=== PATIENT | male | born 1940 | race Caucasian/White ===

== ENCOUNTER 2019-12-25 00:26 | Emergency (ER) | payer MEDICARE, OTHER ==
--- NOTE | 2019-12-25 00:47 | ERPHSYRPT ---
- History of Present Illness Time Seen by Provider: 12/25/19 00:42 Source: patient Exam Limitations: no limitations Physician History: 79 years old male with history of Alzheimer dementia, coronary artery disease status post CABG, issues with balance needing walker/cane for ambulation, got up to go to bathroom and fell forward hitting his head against the stair. No loss of consciousness. He was able to get up. He has significant bruise and hematoma forehead /laceration left hand fingers. He denies injury any rales. No abdominal pain nausea or vomiting. No chest pain palpitations or shortness of breath. Taking aspirin but no other blood thinners. History is limited secondary to his dementia, obtained from and daughter. Occurred: just prior to arrival Reason for Fall: fell from standing pos Injuries/Pain Location: head, face, upper extremity Loss of Consciousness: no loss of consciousness Quality: aching, sharpness Severity of Pain-Max: mild Severity of Pain-Current: mild Modifying Factors: Improves With: nothing Associated Symptoms (Fall): extremity injury, No abdominal pain, No back pain, No chest pain, No dizziness, No headache, No lightheadedness, No muscle spasms, No nausea, No neck pain, No ringing in ears, No seizures, No shortness of breath , No slurred speech, No vomiting Allergies/Adverse Reactions: Penicillins Allergy (Verified 12/25/19 00:57) Home Medications: Amlodipine Besylate [Norvasc] 2.5 mg PO DAILY 12/25/19 [History] Aspirin EC 81 mg [Ecotrin 81 mg] 162 mg PO DAILY 12/25/19 [History] Divalproex Sodium [Depakote] 250 mg PO TID 12/25/19 [History] Memantine HCl 10 mg PO BID 12/25/19 [History] Metoprolol Tartrate 50 mg [Lopressor 50 MG] 50 mg PO BID 12/25/19 [History ] Multivitamin [Multivitamins] 1 each PO DAILY 12/25/19 [History] Pravastatin Sodium 80 mg PO HS 12/25/19 [History] Rivastigmine Tartrate [Rivastigmine] 3 mg PO BID 12/25/19 [History] Sertraline HCl 100 mg PO DAILY 12/25/19 [History] - Review of Systems All Other Systems: Unable due to dementia - Nursing Vital Signs Nursing Vital Signs: Initial Vital Signs Pulse Rate 58 L 12/25/19 00:30 Respiratory Rate 18 12/25/19 00:30 Blood Pressure 137/51 12/25/19 00:30 O2 Sat by Pulse Oximetry 94 L 12/25/19 00:30 Pain Scale Pain Intensity 1 - [place] Coma Score Best Eye Response ([place]): (4) open spontaneously Best Verbal Response ([place]): (5) oriented Best Motor Response ([place]): (6) obeys commands Cecelia Total: 15 - Physical Exam General Appearance: no apparent distress Head Injury: contusions, swelling, tenderness, No Pham's Sign Eye Exam: PERRL/EOMI, eyes nml inspection, No scleral icterus ENT Exam: airway nml Neck Exam: supple Respiratory/Chest Exam: normal breath sounds, No chest tenderness, No respiratory distress Cardiovascular Exam: normal heart sounds, regular rate/rhythm Gastrointestinal Exam: soft, normal bowel sounds, No tenderness Back Exam: normal inspection, normal range of motion Extremity Exam: normal inspection, normal range of motion, capillary refill <3 sec, pelvis stable Neurologic Exam: alert, cooperative, security systems manager II-XII nml as tested, nml cerebellar function Skin Exam: normal color, warm, dry SpO2 Interpretation: normal O2 Delivery: Room Air - Course Nursing assessment & vital signs reviewed: Yes Ordered Tests: Active Orders 24 hr Category Date Time Status CERVICAL SPINE WO CONTRAST [CT] Stat Exams 12/25/19 01:02 Taken CHEST 1 VIEW (PORTABLE) Stat Exams 12/25/19 01:28 Taken FACIAL BONES WO CONTRAST [CT] Stat Exams 12/25/19 00:40 Taken HAND (MINIMUM 3 VIEWS) Stat Exams 12/25/19 01:28 Taken HEAD WITHOUT CONTRAST [CT] Stat Exams 12/25/19 00:59 Taken - Progress Progress: improved, re-examined Progress Note: pharyngitis is noted that [id number] years old is evaluated for a fall and forehead hematoma. Rule out skull fracture, internal oblique, midline shift or mass effect. Does have nondisplaced nasal bone fracture. Negative CT cervical spine. Chest x-ray did not show any pneumothorax. X-rays left hand negative for fracture. Small superficial laceration left third finger repaired with Steri-Strips placed to. Recommended Tylenol take as needed. Patient is offered pain medication but he doesn't want it. This point I do not think he needs any further workup, no signs of injury any rales. Stable for discharge with outpatient followup. Recommended using cane R. Walker all the time to prevent falling. 12/25/19 01:49 Counseled pt/family regarding: diagnosis, need for follow-up, rad results - Departure Departure Disposition: Home Clinical Impression: Traumatic hematoma of forehead Qualifiers: Encounter type: initial encounter Qualified Code(s): S00.83XA - Contusion of other part of head, initial encounter Nasal bone fracture Qualifiers: Encounter type: initial encounter Fracture type: closed Qualified Code(s): S02.2XXA - Fracture of nasal bones, initial encounter for closed fracture Finger laceration Qualifiers: Encounter type: initial encounter Finger: middle finger Damage to nail status: without damage Foreign body presence: without foreign body Laterality: left Qualified Code(s): S61.213A - Laceration without foreign body of left middle finger without damage to nail, initial encounter Fall Qualifiers: Encounter type: initial encounter Qualified Code(s): W19.XXXA - Unspecified fall, initial encounter Condition: Stable Critical Care Time: No Referrals: DOCTOR,NO FAMILY [NON-STAFF PHY W/O PRIVILEGES] - ALYSSA ONEIL [ACTIVE STAFF] - Follow Up with PCP/3 days LUCHO JAIMES MD [NON-STAFF PHY W/O PRIVILEGES] - Follow Up with PCP/3 days Instructions: Preventing Falls, Nose Fracture (DC) Additional Instructions: use cane or walker all the time frame deletion. Take Tylenol as needed. Apply ice on the forehead. Followup with primary care/ENT for reevaluation. Return to ER for any worsening.
[2019-12-25 01:57] VITALS: PULSE 61
[2019-12-25 02:17] VITALS: BP 143/78; O2SAT 94
--- NOTE | 2019-12-25 09:23 | XRAY ---
Indication: Status post fall. Comparison: None Portable apical lordotic chest slightly rotated with minimal left costophrenic angle pleural effusion/pleural thickening. Remaining heart and lungs unremarkable with incidental CABG surgery. Bony thorax intact with mild osteopenia and degenerative changes.
--- NOTE | 2019-12-25 09:26 | XRAY ---
Indication: Frontal head injury following fall. Multiple contiguous axial images obtained through the head without contrast. Comparison: None Age-appropriate global atrophy and moderate periventricular degenerative micro-ischemia bilaterally. No acute intracranial hemorrhage, abnormal extra-axial fluid collection, or mass effect. Fourth ventricle is midline without hydrocephalus. Moderate-sized left frontal scalp hematoma. Bony calvarium intact. Minimal mucosal thickening of both ethmoid sinuses. Mastoid air cells are clear. Impression: 1. Left frontal scalp hematoma. No underlying fracture or acute intracranial abnormalities. 2. Normal aging brain including atrophy and degenerative micro-ischemia. 3. Minimal paranasal sinus disease. Comment: Preliminary interpretation was made by [facility]. No critical discrepancy.
--- NOTE | 2019-12-25 09:28 | XRAY ---
Indication: Frontal head injury following fall. Multiple contiguous axial images obtained through the facial bones without contrast. Sagittal and coronal reformatted images obtained. Comparison: None Moderate-sized left frontal scalp hematoma. Tiny remote-appearing minimally depressed left nasal bone fracture. No acute fracture, suspicious bony lesions, or radiopaque foreign body. Orbits including roof, bojorquez, and floors intact. Minimal/mild mucosal thickening of both ethmoid and maxillary sinuses without fluid leveling. Remaining paranasal sinuses and nasal passages are clear. Visualized soft tissues unremarkable. CT head and CT cervical spine reported separately Impression: 1. Left frontal scalp hematoma and old left nasal bone fracture. 2. Remaining CT facial bones negative for acute fracture. 3. Incidental paranasal sinus disease. Comment: Preliminary interpretation was made by [facility]. No critical discrepancy.
--- NOTE | 2019-12-25 09:31 | XRAY ---
Indication: Frontal head injury following fall. Multiple contiguous axial images obtained through the cervical spine without contrast. Sagittal and coronal reformatted images obtained. Comparison: None Axial images negative for acute fracture, suspicious bony lesions, or spinal canal stenosis. There is mild/moderate multilevel bilateral degenerative facet hypertrophy. Sagittal and coronal reformatted images demonstrates normal alignment with vertebral body heights/disc spaces maintained. No acute compression fracture, subluxation, or jumped facet. Normal appearing craniocervical junction. Visualized noncontrasted soft tissues demonstrates scattered carotid and aortic calcifications and right apical calcified granuloma. CT head and CT facial bones reported separately Impression: 1. Negative for acute fracture/subluxation. 2. Mild multilevel degenerative facet arthropathy and incidental soft tissue findings. Comment: Preliminary interpretation was made by [facility]. No critical discrepancy.
--- NOTE | 2019-12-25 09:34 | XRAY ---
Indication: 3rd digit laceration following fall. Comparison: None 3 views of the left hand demonstrates mild degenerative changes of the 1st metacarpal multangular scaphoid articulation, mild 1st MCP degenerative changes, and tiny hamate bone island. No other bony, articular, or soft tissue abnormalities.
== END 2019-12-25 02:13 | disposition home or self-care (01) ==
LOC: ED 00:26
DX: S00.83XA Contusion of other part of head, initial encounter (principal); S02.2XXA Fracture of nasal bones, initial encounter for closed fracture; S61.213A Laceration without foreign body of left middle finger without damage to nail, initial encounter; W19.XXXA Unspecified fall, initial encounter; Z79.899 Other long term (current) drug therapy; G30.9 Alzheimer's disease, unspecified; F02.80 Dementia in other diseases classified elsewhere, unspecified severity, without behavioral disturbance, psychotic disturbance, mood disturbance, and anxiety; I25.810 Atherosclerosis of coronary artery bypass graft(s) without angina pectoris
CPT/HCPCS: 70450; 70486; 71045; 72125; 73130; 99284